=== PATIENT | female | born 1990 ===

== ENCOUNTER 2018-04-06 05:01 | Inpatient (IN) | payer OTHER ==
[2018-04-06 05:31] VITALS: BMI 33.6
[2018-04-06] MEDS ORDERED: Lactated Ringer's 1,000 ML IV ONE ×2 (05:37→05:39)
[2018-04-06] MEDS ORDERED: Sodium Citrate/Citric Acid 15 ml Sol PO ONE (05:45)
[2018-04-06] MEDS ORDERED: Sodium Citrate/Citric Acid 15 ml Sol ONE (05:57)
[2018-04-06] MEDS ORDERED: cefOXitin IV 2 gm in Dextrose 2 GM/50 ML BAG IVPB ONE (06:00)
[2018-04-06 06:04] LABS: BASO % 0.2 % (0.0-2.0); EOS # 0.1 K/uL (0.0-0.7); EOS % 0.8 % (0.0-4.0); HEMOGLOBIN 11.9 g/dL (11.0-16.0); LYMPH # 1.8 K/uL (1.0-4.3); LYMPH % 15.5 % (20.0-40.0); MEAN CELL VOLUME 91.6 fL (81.0-99.0); MEAN CORPUSCULAR HEMOGLOBIN 31.7 pg (27.0-31.0); MEAN CORPUSCULAR HGB CONC 34.6 g/dL (33.0-37.0); MEAN PLATELET VOLUME 9.8 fL (7.2-11.7); MONO # 0.7 K/uL (0.0-0.8); MONO % 5.6 % (0.0-10.0); NEUT # 9.1 K/uL (1.8-7.0); NEUT % 77.9 % (50.0-75.0); RBC 3.76 Mil/uL (3.80-5.20); WHITE BLOOD COUNT 11.7 K/uL (4.8-10.8)
[2018-04-06] MEDS ORDERED: cefOXitin IV 2 gm in Saline 2 GM/50 ML BAG IVPB ONE (06:06)
[2018-04-06] MEDS ORDERED: Phenylephrine 10 mg/ml Inj ONE (06:07)
[2018-04-06] MEDS ORDERED: Morphine 1 mg/ml preservative-free Inj(Duramorph) ONE (06:07)
[2018-04-06 06:12] LABS: SQUAMOUS EPITHIAL 24 /hpf (0-5); URINE BILIRUBIN NEGATIVE (NEGATIVE); URINE BLOOD NEGATIVE (NEGATIVE); URINE CLARITY Hazy (Clear); URINE COLOR Yellow (YELLOW); URINE GLUCOSE (UA) NORMAL (Normal); URINE HYALINE CAST 0-2 /lpf (0-2); URINE LEUKOCYTE ESTERASE TRACE Leu/uL (Negative); URINE PROTEIN NEGATIVE (NEGATIVE); URINE UROBILINOGEN NORMAL mg/dL (0.2-1.0)
--- NOTE | 2018-04-06 06:15 | OBHP ---
Datetime: 04/06/2018 05:51 IP Adm Impression: Term, intrauterine ; Intact Membranes IP Chief Complaint Other: Previous section IP Admit Plan: Admit to unit; Initiate Section protocol Admit Comment, IP Provider: 27 y.o. . LMP 07/13/17, ASIM 04/19/18, EGA 38w 1d by sono 10/06/17 at 1 2 weeks c/o ctx. (+) AFM; denies LOF, VB. care: Dr. Badillo, treated for BV x 1. No other i ssues. P Ob: 2011, C/S, male, 8 1/2lb. arrest of dilatation at 3 cm. [facility]; no complications P PROP DRAWER: 13 x monthly x 3. Denies h/o STIs, abnormal Pap, fibroids. (+) h/o ov cysts PMH: denies PSH: 2008, open lap right ovarian cystectomy, D.R. 2011, C/S NKDA Meds: PNV - QD Soc Hx: denies tobacco, illicit drug or EtOH use. Lives with FOB; togethr x 2 years. Unemployed Fam Hx: Mother alive 46 y.o. Father alive 50 y.o. both, no med issues P.E.: as above. WD in NAD. Awke, alert, oriented to time, person and place. Pleasant and cooperat ines. Assessment: 27 y.o. P1, 38w 1d, uterine contractions, previous C/S. Category 1 tracing. Patient norah gillespie ate at 1830 hours; last drank at 2000 hours. Clinically stable. Plan: 1) Admit 2) NPO 3) Admission labs 4) Continuous EFM 5) Toribio to gravity 6) Admission labs 7) Mefoxin, on clll to O.R. 8) Notify anesthesia 9) Notify peds 10) Patient clinical rehabilitation aide to O.R. - as per Dr. Badillo Pelvic Type - PN: Adequate Extremities - PN: Normal Abdomen - PN: Normal Back - PN: Normal Breast - PN: Not Done Lungs - PN: Normal Heart - PN: Normal Thyroid - PN: Not Done Neurologic - PN: Normal HEENT - PN: Normal General - PN: Normal Presentation-Admit: Vertex FHR - Baseline A Provider: 125 Contraction Comments Provider: irregular Comments, ACOG Physical Exam: Abdomen: Gravid. Fundal height 39 cm Extremities: no calf tenderness All other systems reviewed and are negative Gestation - Est Wks by US: 38w 1d IP Hx Assessment: The History has been Reviewed and is Current EGA AdmitDate IP: 39.5 IP Indication for Induction: Not Applicable IP Chief Complaint: Uterine contractions NICHD Variability Prov Fetus A: Moderate 6-25bpm NICHD Accel Fetus A IP Provider: 10X10 FHR Category Provider Fetus A: Category I NICHD Decel Fetus A IP Provider: None Dilatation, Provider: 1-2 Effacement, Provider: 0 Station, Provider: -4 Genitourinary Exam: Normal DTRs - PN: Normal
[2018-04-06] MEDS ORDERED: Oxytocin 20 units in LR 2,000 ML IV ONE (06:26)
--- NOTE | 2018-04-06 06:30 | OBADHP ---
Datetime: 04/06/2018 05:51 EGA AdmitDate IP: 39.5
[2018-04-06 06:34] LABS: ALB/GLOB RATIO 1.2 (1.0-2.1); ALBUMIN 3.8 g/dL (3.5-5.0); CALCIUM 9.1 mg/dl (8.6-10.4); GFR AFRICAN-AMERICAN > 60; GFR NON-AFRICAN AMERICAN > 60
[2018-04-06 06:51] LABS: ALT/SGPT 31 U/L (9-52); AST/SGOT 39 U/L (14-36); BLOOD UREA NITROGEN 6 mg/dL (7-17)
[2018-04-06] MEDS ORDERED: DiphenhydrAMINE 50 mg/ml Inj IVP PRN (08:01)
[2018-04-06] MEDS: Simethicone 80 mg Chewtab PO SCH ×4 (10:15→21:01)
[2018-04-06] MEDS: Prenatal Multivit/Folic Acid/Iron Tab PO SCH (10:15)
[2018-04-06] MEDS: Lactated Ringer's 1,000 ML IV SCH (21:00)
[2018-04-07] MEDS: Oxycodone/Acetaminophen 5/325 mg Tab PO PRN ×5 (00:04→19:56)
[2018-04-07] MEDS: Lactated Ringer's 1,000 ML IV SCH (05:06)
[2018-04-07] MEDS ORDERED: Bisacodyl 5mg EC Tab PO ONE ×2 (06:31→16:45)
[2018-04-07 07:17] LABS: MEAN CELL VOLUME 93.1 fL (81.0-99.0); MEAN CORPUSCULAR HEMOGLOBIN 31.8 pg (27.0-31.0); MEAN CORPUSCULAR HGB CONC 34.1 g/dL (33.0-37.0); MEAN PLATELET VOLUME 9.7 fL (7.2-11.7); RBC 3.15 Mil/uL (3.80-5.20); RED CELL DISTRIBUTION WIDTH 13.3 % (11.5-14.5); WHITE BLOOD COUNT 16.6 K/uL (4.8-10.8)
[2018-04-07] MEDS: Simethicone 80 mg Chewtab PO SCH ×4 (09:30→21:08)
[2018-04-07] MEDS: Prenatal Multivit/Folic Acid/Iron Tab PO SCH (09:30)
--- NOTE | 2018-04-08 07:44 | OBPPN ---
Datetime: 04/08/2018 07:41 PP Pain Prov: Within normal limits PP Nausea Prov: Denies PP Flatus Prov: Yes PP Abdomen/Uterus Prov: Normal PP Lochia Prov: Normal PP Extremities Prov: Normal PP C/S Incision Prov: Normal PP Comments Phys Exam Prov: fudus below umblicus incision clean and dry ext mild edema PP Impression Prov: Normal progression PP Plan Prov: Continue present management PP Progress Note Prov: pt was seen at bed donita, pain under control,no n/v, tolerating deit,voiding, m in lochia, flatus+ pod#2 s/p c/s cont painm ag cont post op care encourage ambulation Vital Signs Provider PP: Reviewed; Within Normal Limits
[2018-04-08] MEDS: Prenatal Multivit/Folic Acid/Iron Tab PO SCH (09:15)
[2018-04-08] MEDS: Oxycodone/Acetaminophen 5/325 mg Tab PO PRN ×2 (09:16→16:41)
[2018-04-08] MEDS: Simethicone 80 mg Chewtab PO SCH ×4 (09:16→21:04)
[2018-04-09] MEDS: Oxycodone/Acetaminophen 5/325 mg Tab PO PRN (08:02)
[2018-04-09 08:17] VITALS: BP 118/82; TEMP 97.3
[2018-04-09] MEDS: Prenatal Multivit/Folic Acid/Iron Tab PO SCH (09:04)
[2018-04-09] MEDS: Simethicone 80 mg Chewtab PO SCH (09:04)
--- NOTE | 2018-04-09 11:55 | CP.PCM.PN ---
Subjective - Date & Time of Evaluation Date of Evaluation: 04/09/18 Time of Evaluation: 10:40 - Subjective Subjective: OK No complaints Objective - Vital Signs/Intake and Output Vital Signs (last 24 hours): Temp Pulse Resp BP Pulse Ox 97.3 F L 84 20 118/82 99 04/09/18 08:15 04/09/18 08:15 04/09/18 08:15 04/09/18 08:15 04/09/18 08:15 - Medications Medications: Current Medications Ibuprofen (Motrin Tab) 600 mg PO Q6H PRN PRN Reason: Pain, Mild (1-3) Last Admin: 04/08/18 21:03 Dose: 600 mg Oxycodone/Acetaminophen (Percocet 5/325 Mg Tab) 2 tab PO Q4H PRN PRN Reason: Pain, severe (8-10) Stop: 04/10/18 16:44 Last Admin: 04/09/18 08:02 Dose: 2 tab Multivit/Folic Acid/Iron () 1 tab PO DAILY [facility] Last Admin: 04/09/18 09:04 Dose: 1 tab Simethicone (Mylicon Chew Tab) 80 mg PO QID [facility] Last Admin: 04/09/18 09:04 Dose: 80 mg - Labs Labs: 04/07/18 07:08 04/06/18 05:45 - Constitutional Appears: Well, No Acute Distress - Head Exam Head Exam: NORMAL INSPECTION - Eye Exam Eye Exam: Normal appearance - ENT Exam ENT Exam: Normal Exam - Neck Exam Neck Exam: Full ROM - Respiratory Exam Respiratory Exam: NORMAL BREATHING PATTERN - Cardiovascular Exam Cardiovascular Exam: REGULAR RHYTHM - GI/Abdominal Exam GI & Abdominal Exam: Normal Bowel Sounds - Rectal Exam Rectal Exam: NORMAL INSPECTION - Exam Exam: NORMAL INSPECTION - Extremities Exam Extremities Exam: Full ROM - Back Exam Back Exam: NORMAL INSPECTION - Neurological Exam Neurological Exam: Awake, Normal Gait, Oriented x3 - Skin Skin Exam: Normal Color, Warm - Additional Findings Additional findings: Incision clean, dy and intact Healing well Assessment and Plan - Assessment and Plan (Free Text) Assessment: POD # 3 S/P C/S OK Stable and Satisfactory condition and recovery Plan: D/C home with instructions and Rx for Motrin and Percocet, per Dr. Badillo
--- NOTE | 2018-04-09 12:06 | CP.PCM.DIS ---
Provider - Provider Date of Admission: 04/06/18 05:17 Attending physician: True Badillo MD Time Spent in preparation of Discharge (in minutes): 30 Diagnosis - Discharge Diagnosis (1) Previous section complicating , with delivery Status: Acute (2) S/P repeat low transverse Status: Acute Hospital Course - Lab Results Lab Results: Most Recent Lab Values WBC 16.6 K/uL (4.8-10.8) H 04/07/18 07:08 RBC 3.15 Mil/uL (3.80-5.20) L 04/07/18 07:08 Hgb 10.0 g/dL (11.0-16.0) L 04/07/18 07:08 Hct 29.3 % (34.0-47.0) L 04/07/18 07:08 MCV 93.1 fL (81.0-99.0) 04/07/18 07:08 MCH 31.8 pg (27.0-31.0) H 04/07/18 07:08 MCHC 34.1 g/dL (33.0-37.0) 04/07/18 07:08 RDW 13.3 % (11.5-14.5) 04/07/18 07:08 Plt Count 116 K/uL (130-400) L 04/07/18 07:08 MPV 9.7 fL (7.2-11.7) 04/07/18 07:08 Neut % (Auto) 77.9 % (50.0-75.0) H 04/06/18 05:45 Lymph % (Auto) 15.5 % (20.0-40.0) L 04/06/18 05:45 Oliver % (Auto) 5.6 % (0.0-10.0) 04/06/18 05:45 Eos % (Auto) 0.8 % (0.0-4.0) 04/06/18 05:45 Baso % (Auto) 0.2 % (0.0-2.0) 04/06/18 05:45 Neut # (Auto) 9.1 K/uL (1.8-7.0) H 04/06/18 05:45 Lymph # (Auto) 1.8 K/uL (1.0-4.3) 04/06/18 05:45 Oliver # (Auto) 0.7 K/uL (0.0-0.8) 04/06/18 05:45 Eos # (Auto) 0.1 K/uL (0.0-0.7) 04/06/18 05:45 Baso # (Auto) 0.0 K/uL (0.0-0.2) 04/06/18 05:45 Differential Comment 04/07/18 07:08 Sodium 136 mmol/L (132-148) 04/06/18 05:45 Potassium 4.3 mmol/L (3.6-5.2) 04/06/18 05:45 Chloride 106 mmol/L (98-107) 04/06/18 05:45 Carbon Dioxide 21 mmol/L (22-30) L 04/06/18 05:45 Anion Gap 14 (10-20) 04/06/18 05:45 BUN 6 mg/dL (7-17) L 04/06/18 05:45 Creatinine 0.5 mg/dL (0.7-1.2) L 04/06/18 05:45 Est GFR ( Amer) > 60 04/06/18 05:45 Est GFR (Non-Af Amer) > 60 04/06/18 05:45 Random Glucose 87 mg/dL (65-105) 04/06/18 05:45 Calcium 9.1 mg/dl (8.6-10.4) 04/06/18 05:45 Total Bilirubin 0.7 mg/dL (0.2-1.3) 04/06/18 05:45 AST 39 U/L (14-36) H 04/06/18 05:45 ALT 31 U/L (9-52) 04/06/18 05:45 Alkaline Phosphatase 114 U/L (38-126) 04/06/18 05:45 Total Protein 7.0 g/dL (6.3-8.3) 04/06/18 05:45 Albumin 3.8 g/dL (3.5-5.0) 04/06/18 05:45 Globulin 3.2 gm/dL (2.2-3.9) 04/06/18 05:45 Albumin/Globulin Ratio 1.2 (1.0-2.1) 04/06/18 05:45 Urine Color Yellow (YELLOW) 04/06/18 05:45 Urine Clarity Hazy (Clear) 04/06/18 05:45 Urine pH 7.0 (5.0-8.0) 04/06/18 05:45 Ur Specific [place] 1.016 (1.003-1.030) 04/06/18 05:45 Urine Protein Negative mg/dL (NEGATIVE) 04/06/18 05:45 Urine Glucose (UA) Normal mg/dL (Normal) 04/06/18 05:45 Urine Ketones 1+ mg/dL (NEGATIVE) H 04/06/18 05:45 Urine Blood Negative (NEGATIVE) 04/06/18 05:45 Urine Nitrate Negative (NEGATIVE) 04/06/18 05:45 Urine Bilirubin Negative (NEGATIVE) 04/06/18 05:45 Urine Urobilinogen Normal mg/dL (0.2-1.0) 04/06/18 05:45 Ur Leukocyte Esterase Trace Carly/uL (Negative) 04/06/18 05:45 Urine WBC (Auto) 2 /hpf (0-5) 04/06/18 05:45 Urine RBC (Auto) < 1 /hpf (0-3) 04/06/18 05:45 Ur Squamous Epith Cells 24 /hpf (0-5) H 04/06/18 05:45 Hyaline Casts 0-2 /lpf (0-2) 04/06/18 05:45 RPR Nonreactive (NONREACTIVE) 04/06/18 05:45 HIV 1&2 Antibody Screen Negative (NEGATIVE) 04/06/18 08:16 Blood Type O POSITIVE 04/06/18 05:45 Antibody Screen Negative 04/06/18 05:45 - Hospital Course Hospital Course: Unremarkable Recovered Satisfactorily - Date & Time of H&P Date of H&P: 04/06/18 Time of H&P: 07:00 Discharge Exam - Head Exam Head Exam: NORMAL INSPECTION - Eye Exam Eye Exam: Normal appearance - ENT Exam ENT Exam: Normal Exam - Respiratory Exam Respiratory Exam: NORMAL BREATHING PATTERN, UNREMARKABLE - Cardiovascular Exam Cardiovascular Exam: REGULAR RHYTHM - GI/Abdominal Exam GI & Abdominal Exam: Soft, Unremarkable - Exam Exam: NORMAL INSPECTION - Extremities Exam Extremities exam: full ROM, normal inspection - Neurological Exam Neurological exam: Alert, Oriented x3 - Psychiatric Exam Psychiatric exam: Normal Affect, Normal Mood - Skin Skin Exam: Intact - Additional Findings Additional findings: Incision clean, dry and intact Discharge Plan - Discharge Medications Prescriptions: Ibuprofen [Motrin Tab] 600 mg PO Q6H PRN #30 tab PRN Reason: Pain, Mild (1-3) oxyCODONE/Acetaminophen [Percocet 5/325 mg Tab] 1 tab PO Q4H PRN #20 tab PRN Reason: Pain, Moderate (4-7) - Follow Up Plan Condition: IMPROVED Patient education suggested?: Yes Instructions: Depression, Jaundice, Babies (DC), How to Prevent Surgical Site Infections, ( Delivery) (DC), How to Lay Your Down to Sleep, Common Problems, Feeding Your , Bleeding, Bottle Feeding Your Baby, What to Watch for After You Have a Baby Additional Instructions: See Progress Note
[2018-04-09 16:47] VITALS: PULSE 82; RESP 18; O2SAT 98
== END 2018-04-09 10:40 | disposition home or self-care (01) | DRG 371 ==
LOC: C.EROB 05:01 → C.4D 05:17 → C.4M 10:26
PROVIDERS: ADMIT Obstetrics & Gynecology; ATTEND Obstetrics & Gynecology
PROC: 10D00Z1 Extraction of Products of Conception, Low, Open Approach (ICD-10-PCS; principal; 2018-04-06)
DX: O34.211 Maternal care for low transverse scar from previous cesarean delivery (principal); O75.82 Onset (spontaneous) of labor after 37 completed weeks of gestation but before 39 completed weeks gestation, with delivery by (planned) cesarean section; Z3A.38 38 weeks gestation of pregnancy; Z37.0 Single live birth